=== PATIENT | female | born 1985 | race African-American/Black ===

== ENCOUNTER 2024-11-27 10:47 | Emergency (ER) | payer OTHER ==
[~2024-11-27] VITALS: Ht 170.2 cm; Wt 60.0 kg
[2024-11-27 10:54] VITALS: O2SAT 98
[2024-11-27] MEDS: ACETAMINOPHEN 325MG TABLET PO ONE (11:57)
[2024-11-27] MEDS: TETANUS, DIPHTHERIA, PERTUSSIS VAC/PF 0.5ML (>10YR OLD) IM ONE (11:57)
[2024-11-27 13:25] LABS: BASOPHILS % 0.7 % (0.0-2.0); EOSINOPHILS % 0.7 % (0.0-5.0); HEMATOCRIT. 37.4 % (36.0-48.0); HEMOGLOBIN. 11.8 g/dL (12.0-16.0); LYMPHOCYTES % 17.9 % (20.0-50.0); MEAN PLATELET VOLUME 7.1 fl (7.4-10.4); MONOCYTES % 4.0 % (2.0-8.0); NEUTROPHILS % 76.7 % (40.0-76.0); PLATELET 433 x1000/uL (130-400); RED BLOOD CELL COUNT 4.23 mill/uL (4.2-5.4); RED CELL DISTRIBUTION WIDTH 20.3 % (11.6-14.6)
[2024-11-27 13:50] LABS: HCG SCREEN NEGATIVE
[2024-11-27 13:52] LABS: CREATININE 0.7 mg/dL (0.6-1.0)
[2024-11-27 13:53] LABS: UREA NITROGEN BLOOD 10 mg/dL (9-23)
[2024-11-27 13:54] LABS: ASPARTATE AMINOTRANSFERASE 29 IU/L (<34)
[2024-11-27 13:55] LABS: BILIRUBIN TOTAL 0.4 mg/dL (0.1-1.0); PROTEIN TOTAL 8.0 g/dL (6.0-8.3)
[2024-11-27] MEDS ORDERED: IOHEXOL-300 100 ML BOTTLE ONE (14:54)
[2024-11-27 15:33] VITALS: BP 136/84; PULSE 92; RESP 16; TEMP 37; O2SAT 99
== END 2024-11-27 15:38 | disposition home or self-care (01) ==
LOC: ER 10:47
DX: S20.219A Contusion of unspecified front wall of thorax, initial encounter (principal); S09.8XXA Other specified injuries of head, initial encounter; M25.562 Pain in left knee; M79.602 Pain in left arm; R51.9 Headache, unspecified; J45.909 Unspecified asthma, uncomplicated; V89.2XXA Person injured in unspecified motor-vehicle accident, traffic, initial encounter; Y93.89 Activity, other specified; Y92.410 Unspecified street and highway as the place of occurrence of the external cause; Y99.8 Other external cause status
CPT/HCPCS: 99285; 70450; 71045; 80053; 81025; 84703; 83690; 85025; 36415; 73030; 73080; 73110; 73130; 73562; 72125; 74177; 90715; 90471; Q9967